=== PATIENT | male | born 1930 | race Caucasian/White ===

== ENCOUNTER 2018-02-13 20:22 | Inpatient (IN) | payer MEDICARE ==
[~2018-02-13] VITALS: Ht 160 cm; Wt 59.2 kg
[2018-02-13 21:23] LABS: BASOPHILS % (AUTO) 0.5 % (0.0-5.0); EOSINOPHILS % (AUTO) 0.3 % (0.0-8.0); HEMATOCRIT 33.4 % (42-54); LYMPHOCYTES % (AUTO) 10.7 % (21.0-51.0); MEAN CORPUSCULAR HEMOGLOBIN 29.7 pg (27.0-33.0); MEAN CORPUSCULAR HGB CONC 34.2 g/dL (32.0-36.0); MEAN CORPUSCULAR VOLUME 86.9 fL (79-99); MONOCYTES % (AUTO) 10.2 % (3.0-13.0); NEUTROPHILS % (AUTO) 78.3 % (40.0-77.0); PLATELET COUNT (AUTO) 205 K/uL (130-400); RED BLOOD CELL COUNT(AUTO) 3.84 MIL/uL (4.50-6.20); RED CELL DISTRIBUTION WIDTH 13.4 % (11.0-15.5); WHITE BLOOD COUNT (AUTO) 9.6 K/uL (4.8-10.8)
[2018-02-13 21:36] LABS: INR 1.13 (0.85-1.15); PARTIAL THROMBOPLASTIN TIME 32.4 SEC (26.3-35.5); PROTHROMBIN TIME 11.6 SEC (9.6-11.6)
[2018-02-13 21:44] LABS: CARBON DIOXIDE 29 mmol/L (21-32); CHLORIDE 99 mmol/L (101-111); CREATININE 0.9 mg/dL (0.5-1.5); GLOMERULAR FILTR. RATE CALC 85 mL/min (>60); GLUCOSE,RANDOM 125 mg/dL (70-105); POTASSIUM 4.5 mmol/L (3.5-5.1); SODIUM SERUM 136 mmol/L (136-145); UREA NITROGEN, BLOOD 17 mg/dL (7-18)
[2018-02-13 22:00] LABS: ALANINE AMINOTRANSFERASE 13 U/L (12-78); ALBUMIN 2.9 g/dL (3.5-5.0); AMYLASE 21 U/L (25-115); ASPARTATE AMINOTRANSFERASE 38 U/L (10-37); BILIRUBIN,TOTAL 0.7 mg/dL (0.2-1.0); CREATINE KINASE MB < 0.5 ng/mL (0.5-3.6); CREATINE KINASE, TOTAL 91 U/L (21-232); LIPASE < 50 U/L (114-286); TOTAL PROTEIN, SERUM 7.2 g/dL (6.0-8.3)
[2018-02-13] MEDS ORDERED: METRONIDAZOLE 500MG/100ML BAG 100 ML ONE (22:43)
[2018-02-13] MEDS ORDERED: OSELTAMIVIR PHOSPHATE 75 MG CAP ONE (23:20)
[2018-02-13] MEDS ORDERED: SODIUM CHLORIDE 0.9% 1000ML 1,000 ML IV SCH (23:59)
[2018-02-14] MEDS ORDERED: GUAIFENESIN-DM 200/20 MG 10 ML PO PRN
[2018-02-14] MEDS ORDERED: LIDOCAINE HCL-MPF 1% 2ML VIAL IVP PRN
[2018-02-14] MEDS ORDERED: POTASSIUM CHLORIDE 10% ELIXIR 20 MEQ/15 ML UDCUP PO PRN
[2018-02-14] MEDS ORDERED: HYDRALAZINE HCL 20 MG/ML VIAL IV PRN
[2018-02-14] MEDS ORDERED: ONDANSETRON HCL MDV 20ML 2 MG/ML VIAL IV PRN
[2018-02-14] MEDS ORDERED: MORPHINE SULFATE 2 MG/ML 1ML SYG IV PRN
[2018-02-14] MEDS ORDERED: POTASSIUM CHLORIDE 20MEQ/100ML 100 ML IV PRN
[2018-02-14] MEDS ORDERED: ACETAMINOPHEN 325 MG TAB PO PRN ×2
[2018-02-14] MEDS ORDERED: SODIUM CHLORIDE 0.9% 1000ML 1,000 ML IV ONE (00:12)
[2018-02-14 00:23] LABS: APPEARANCE,URINE Clear (CLEAR); BILIRUBIN,URINE Negative (NEGATIVE); COLOR,URINE Dark Yellow (YELLOW); GLUCOSE, URINE (UA) Negative (NEGATIVE); KETONES,URINE Negative (NEGATIVE); LEUKOCYTE ESTERASE ,URINE Negative (NEGATIVE); NITRATE,URINE Negative (NEGATIVE); OCCULT BLOOD,URINE Trace (NEGATIVE); PROTEIN,URINE POS 1+ (NEGATIVE)
[2018-02-14] MEDS ORDERED: IPRATROPIUM/ALBUTEROL SULFATE 3 ML SOLUTION IH ONE ×3 (00:24→11:12)
[2018-02-14] MEDS: IPRATROPIUM/ALBUTEROL SULFATE 3 ML SOLUTION IH SCH ×4 (00:25→19:11)
[2018-02-14 00:44] LABS: BACTERIA,URINE Few /HPF (None Seen); RBC,URINE 0-1 /HPF (0-1)
[2018-02-14 00:45] LABS: FINE GRANULAR CASTS,URINE 0-2 /LPF (None Seen); MUCUS,URINE Few LPF (None Seen)
[2018-02-14 06:51] LABS: HEMATOCRIT 33.5 % (42-54); MEAN CORPUSCULAR HGB CONC 34.2 g/dL (32.0-36.0); MEAN CORPUSCULAR VOLUME 87.8 fL (79-99); PLATELET COUNT (AUTO) 226 K/uL (130-400); RED BLOOD CELL COUNT(AUTO) 3.82 MIL/uL (4.50-6.20); RED CELL DISTRIBUTION WIDTH 13.8 % (11.0-15.5); WHITE BLOOD COUNT (AUTO) 11.1 K/uL (4.8-10.8)
[2018-02-14 07:07] LABS: CREATININE 1.2 mg/dL (0.5-1.5); POTASSIUM 3.5 mmol/L (3.5-5.1)
[2018-02-14] MEDS ORDERED: METRONIDAZOLE 500MG/100ML BAG 100 ML ONE ×2 (07:44→15:21)
[2018-02-14] MEDS ORDERED: PANTOPRAZOLE 40 MG/VIAL IVP SCH (09:00)
[2018-02-14] MEDS: ENOXAPARIN SODIUM 40 MG/0.4 ML SYRINGE SQ SCH (09:00)
[2018-02-14] MEDS ORDERED: ENOXAPARIN SODIUM 40 MG/0.4 ML SYRINGE SQ ONE (10:15)
[2018-02-14] MEDS ORDERED: OSELTAMIVIR PHOSPHATE 75 MG CAP ONE ×2 (10:16→21:42)
[2018-02-14] MEDS ORDERED: FAMOTIDINE/PF 20 MG/2 ML VIAL IV ONE ×2 (10:16→21:43)
[2018-02-14] MEDS: OSELTAMIVIR PHOSPHATE 75 MG CAP PO SCH (21:00)
[2018-02-14] MEDS ORDERED: METOPROLOL TARTRATE 1 MG/ML 5ML VIAL IV SCH (21:45)
[2018-02-14 22:35] VITALS: BP 120/68
[2018-02-14] MEDS: IPRATROPIUM 0.5 MG/2.5 ML INH IH SCH (23:43)
[2018-02-15] MEDS ORDERED: SODIUM CHLORIDE 0.9% 250 ML IV ONE (00:05)
[2018-02-15] MEDS: METRONIDAZOLE 500MG/100ML BAG 100 ML IV SCH ×4 (00:12→18:07)
[2018-02-15] MEDS: LEVOFLOXACIN 500 MG/D5W 100 ML 100 ML IV SCH ×2 (00:12→00:14)
[2018-02-15] MEDS ORDERED: LACTULOSE 20 GM/30 ML UDCUP PO PRN (00:45)
[2018-02-15 04:00] VITALS: BP 132/76
[2018-02-15] MEDS: IPRATROPIUM 0.5 MG/2.5 ML INH IH SCH ×4 (05:52→23:52)
[2018-02-15 06:03] LABS: HEMATOCRIT 29.6 % (42-54); MEAN CORPUSCULAR HEMOGLOBIN 29.4 pg (27.0-33.0); MEAN CORPUSCULAR HGB CONC 34.2 g/dL (32.0-36.0); PLATELET COUNT (AUTO) 209 K/uL (130-400); RED BLOOD CELL COUNT(AUTO) 3.44 MIL/uL (4.50-6.20); RED CELL DISTRIBUTION WIDTH 13.8 % (11.0-15.5); WHITE BLOOD COUNT (AUTO) 8.8 K/uL (4.8-10.8)
[2018-02-15 06:23] LABS: B-TYPE NATRIURETIC PEPTIDE 392 pg/mL (0-100)
[2018-02-15 06:25] LABS: CREATININE 0.9 mg/dL (0.5-1.5); POTASSIUM 3.1 mmol/L (3.5-5.1)
[2018-02-15 08:00] VITALS: BP 116/69
[2018-02-15] MEDS ORDERED: ASPI-555 PO (09:20)
[2018-02-15] MEDS ORDERED: PREG100C PO (09:20)
[2018-02-15] MEDS ORDERED: OMEP40CA37 PO (09:20)
[2018-02-15] MEDS ORDERED: POLY17PO3 PO (09:20)
[2018-02-15] MEDS ORDERED: MORP30PC9 PO (09:20)
[2018-02-15] MEDS ORDERED: METO50TA18 PO (09:20)
[2018-02-15] MEDS: PANTOPRAZOLE SODIUM 40 MG TABLET.DR PO SCH (09:28)
[2018-02-15] MEDS: ENOXAPARIN SODIUM 40 MG/0.4 ML SYRINGE SQ SCH (09:29)
[2018-02-15] MEDS: OSELTAMIVIR PHOSPHATE 75 MG CAP PO SCH ×2 (09:29→20:34)
[2018-02-15] MEDS ORDERED: PHARMACY COMMUNICATION MISC SCH (09:30)
[2018-02-15] MEDS ORDERED: MORPHINE SULFATE 15 MG TABLET.SA PO SCH (09:45)
[2018-02-15 11:00] VITALS: BP 106/67
[2018-02-15] MEDS ORDERED: PREGABALIN 100 MG CAPSULE PO SCH (14:00)
[2018-02-15 16:00] VITALS: BP 124/64
[2018-02-15] MEDS: MORPHINE SULFATE 15 MG TABLET.SA PO SCH ×2 (18:09→19:28)
[2018-02-15] MEDS: PREGABALIN 100 MG CAPSULE PO SCH ×2 (18:09→19:28)
[2018-02-15 20:00] VITALS: BP 118/70
[2018-02-15] MEDS: POLYETHYLENE GLYCOL 3350 17 GM POWD.PACK PO SCH (20:33)
[2018-02-16] VITALS: BP 132/80
[2018-02-16] MEDS: METRONIDAZOLE 500MG/100ML BAG 100 ML IV SCH ×2 (00:19→08:23)
[2018-02-16] MEDS: LEVOFLOXACIN 500 MG/D5W 100 ML 100 ML IV SCH (00:19)
[2018-02-16 04:00] VITALS: BP 110/70
[2018-02-16 04:56] LABS: HEMATOCRIT 26.9 % (42-54); MEAN CORPUSCULAR HEMOGLOBIN 31.1 pg (27.0-33.0); MEAN CORPUSCULAR HGB CONC 36.3 g/dL (32.0-36.0); MEAN CORPUSCULAR VOLUME 85.5 fL (79-99); PLATELET COUNT (AUTO) 221 K/uL (130-400); RED BLOOD CELL COUNT(AUTO) 3.15 MIL/uL (4.50-6.20); RED CELL DISTRIBUTION WIDTH 13.6 % (11.0-15.5); WHITE BLOOD COUNT (AUTO) 7.1 K/uL (4.8-10.8)
[2018-02-16 05:14] LABS: CREATININE 0.9 mg/dL (0.5-1.5); POTASSIUM 3.3 mmol/L (3.5-5.1)
[2018-02-16] MEDS: POTASSIUM CHLORIDE 20 MEQ ERTAB PO PRN ×2 (06:21→12:43)
[2018-02-16] MEDS: IPRATROPIUM 0.5 MG/2.5 ML INH IH SCH ×2 (06:47→11:15)
[2018-02-16] MEDS ORDERED: MORPHINE SULFATE 15 MG TABLET.SA PO SCH (07:04)
[2018-02-16] MEDS ORDERED: PREGABALIN 100 MG CAPSULE PO SCH (07:04)
[2018-02-16 08:00] VITALS: BP 86/52
[2018-02-16] MEDS: OSELTAMIVIR PHOSPHATE 75 MG CAP PO SCH (08:24)
[2018-02-16] MEDS: PANTOPRAZOLE SODIUM 40 MG TABLET.DR PO SCH (08:24)
[2018-02-16] MEDS: ENOXAPARIN SODIUM 40 MG/0.4 ML SYRINGE SQ SCH (08:25)
[2018-02-16] MEDS ORDERED: ASPIRIN 81 MG EC TAB PO SCH (09:00)
[2018-02-16] MEDS ORDERED: METOPROLOL TARTRATE 50 MG TAB PO SCH (09:00)
[2018-02-16] MEDS ORDERED: NON-FORMULARY MEDICATION 1 EACH (Omeprazole 40 MG) PO SCH (09:00)
[2018-02-16] MEDS: POLYETHYLENE GLYCOL 3350 17 GM POWD.PACK PO SCH (09:00)
[2018-02-16] MEDS ORDERED: OSEL75 PO (10:30)
[2018-02-16] MEDS ORDERED: LEVO500T2 PO (10:30)
[2018-02-16 11:49] VITALS: BP 77/47
[2018-02-16 11:58] VITALS: BP 115/57
== END 2018-02-16 14:15 | disposition home or self-care (01) | DRG 391 ==
LOC: EDH 20:22 → EDHIP 23:00 → 3CH 02-14 22:19
PROVIDERS: ADMIT Family Medicine; ATTEND Family Medicine
DX: K57.92 Diverticulitis of intestine, part unspecified, without perforation or abscess without bleeding (principal); J18.9 Pneumonia, unspecified organism; J84.10 Pulmonary fibrosis, unspecified; E86.0 Dehydration; J43.9 Emphysema, unspecified; I35.0 Nonrheumatic aortic (valve) stenosis; Z95.1 Presence of aortocoronary bypass graft; J98.11 Atelectasis; J10.1 Influenza due to other identified influenza virus with other respiratory manifestations; N20.0 Calculus of kidney; I10 Essential (primary) hypertension; I25.10 Atherosclerotic heart disease of native coronary artery without angina pectoris; Z88.1 Allergy status to other antibiotic agents; Z82.49 Family history of ischemic heart disease and other diseases of the circulatory system
CPT/HCPCS: 36415; 71045; 71046; 71250; 74176; 80048; 80053; 81001; 82150; 82550; 82553; 83690; 83880; 84484; 85025; 85027; 85610; 85730; 87040; 87804; 93005; 93306; 94640; 94664; C9113; J1650; J1956; J3490; J7030

== ENCOUNTER 2018-03-03 19:15 | Inpatient (IN) | payer MEDICARE ==
[~2018-03-03] VITALS: Ht 160 cm; Wt 56.7 kg
[~2018-03-03 19:15] MED LIST: ASPI-555 PO; LEVO500T2 PO; METO50TA18 PO; MORP30PC9 PO; OMEP40CA37 PO; OSEL75 PO; POLY17PO3 PO; PREG100C PO
[2018-03-03 19:46] LABS: BASOPHILS % (AUTO) 0.4 % (0.0-5.0); EOSINOPHILS % (AUTO) 1.3 % (0.0-8.0); HEMATOCRIT 34.1 % (42-54); LYMPHOCYTES % (AUTO) 19.5 % (21.0-51.0); MEAN CORPUSCULAR HEMOGLOBIN 29.8 pg (27.0-33.0); MEAN CORPUSCULAR HGB CONC 34.6 g/dL (32.0-36.0); MEAN CORPUSCULAR VOLUME 86.1 fL (79-99); MONOCYTES % (AUTO) 3.7 % (3.0-13.0); NEUTROPHILS % (AUTO) 75.1 % (40.0-77.0); PLATELET COUNT (AUTO) 375 K/uL (130-400); RED BLOOD CELL COUNT(AUTO) 3.96 MIL/uL (4.50-6.20); RED CELL DISTRIBUTION WIDTH 14.5 % (11.0-15.5)
[2018-03-03] MEDS ORDERED: ZOSYN 3.375GM+NS 50ML 50 ML IV ONE (19:54)
[2018-03-03] MEDS ORDERED: SODIUM CHLORIDE 0.9% 1000ML 1,000 ML IV ONE ×2 (19:54→23:46)
[2018-03-03] MEDS ORDERED: METOPROLOL TARTRATE 1 MG/ML 5ML VIAL IV ONE (19:54)
[2018-03-03] MEDS ORDERED: ONDANSETRON HCL MDV 20ML 2 MG/ML VIAL ONE (19:54)
[2018-03-03 19:57] LABS: INR 1.01 (0.85-1.15); PARTIAL THROMBOPLASTIN TIME 27.3 SEC (26.3-35.5); PROTHROMBIN TIME 10.6 SEC (9.6-11.6)
[2018-03-03] MEDS: METRONIDAZOLE 500MG/100ML BAG 100 ML IVPB SCH (20:00)
[2018-03-03 20:03] LABS: CREATININE 1.3 mg/dL (0.5-1.5); POTASSIUM 4.4 mmol/L (3.5-5.1)
[2018-03-03 20:08] LABS: ALBUMIN 3.5 g/dL (3.5-5.0); BILIRUBIN,TOTAL 0.2 mg/dL (0.2-1.0); TOTAL PROTEIN, SERUM 8.2 g/dL (6.0-8.3)
[2018-03-03 20:09] LABS: B-TYPE NATRIURETIC PEPTIDE 224 pg/mL (0-100)
[2018-03-03] MEDS ORDERED: IOPAMIDOL-370 75 ML VIAL IV ONE (20:14)
[2018-03-03 20:21] LABS: CREATINE KINASE MB 0.6 ng/mL (0.5-3.6); CREATINE KINASE, TOTAL 50 U/L (21-232); MYOGLOBIN 75 ng/mL (10-92); TROPONIN I < 0.04 ng/mL (0.00-0.06)
[2018-03-03] MEDS ORDERED: MORPHINE SULFATE 4 MG/1ML SYG ONE (20:35)
[2018-03-03] MEDS ORDERED: ACETAMINOPHEN 325 MG TAB PO PRN ×2 (22:00)
[2018-03-03] MEDS ORDERED: LIDOCAINE HCL-MPF 1% 2ML VIAL IJ PRN (22:00)
[2018-03-03] MEDS ORDERED: POTASSIUM CHLORIDE 20 MEQ ERTAB PO PRN (22:00)
[2018-03-03] MEDS ORDERED: POTASSIUM CHLORIDE 20MEQ/100ML 100 ML IV PRN (22:00)
[2018-03-03] MEDS ORDERED: CLONIDINE HCL 0.1 MG TABLET PO PRN (22:00)
[2018-03-03] MEDS ORDERED: NITROGLYCERIN 0.4 MG SL TAB SL PRN (22:00)
[2018-03-03] MEDS: FAMOTIDINE/PF 20 MG/2 ML VIAL IV SCH (22:00)
[2018-03-03] MEDS ORDERED: MORPHINE SULFATE 4 MG/1ML SYG IVP PRN (22:00)
[2018-03-03] MEDS ORDERED: ONDANSETRON HCL MDV 20ML 2 MG/ML VIAL IVP PRN (22:00)
[2018-03-03 23:28] LABS: APPEARANCE,URINE Clear (CLEAR); BILIRUBIN,URINE Negative (NEGATIVE); COLOR,URINE Yellow (YELLOW); GLUCOSE, URINE (UA) Negative (NEGATIVE); KETONES,URINE Negative (NEGATIVE); LEUKOCYTE ESTERASE ,URINE Negative (NEGATIVE); NITRATE,URINE Negative (NEGATIVE); OCCULT BLOOD,URINE Trace (NEGATIVE); PROTEIN,URINE POS 1+ (NEGATIVE)
[2018-03-03 23:34] LABS: BACTERIA,URINE None Seen /HPF (None Seen); RBC,URINE 0-1 /HPF (0-1); SQUAMOUS EPITHELIAL CELL,UR Rare /HPF (0-2); WBC,URINE None Seen /HPF (0-1)
[2018-03-03] MEDS ORDERED: METRONIDAZOLE 500MG/100ML BAG 100 ML ONE (23:47)
[2018-03-04] VITALS (7 sets, daily range): BP systolic 96–119; BP diastolic 52–65
[2018-03-04] MEDS ORDERED: HYDRALAZINE HCL 20 MG/ML VIAL IV PRN (00:45)
[2018-03-04] MEDS ORDERED: IPRATROPIUM/ALBUTEROL SULFATE 3 ML SOLUTION IH PRN (01:00)
[2018-03-04] MEDS: SODIUM CHLORIDE 0.9% 1000ML 1,000 ML IV SCH ×2 (01:00→16:17)
[2018-03-04 03:41] LABS: BASOPHILS % (AUTO) 0.3 % (0.0-5.0); MEAN CORPUSCULAR HEMOGLOBIN 28.9 pg (27.0-33.0); MEAN CORPUSCULAR HGB CONC 34.1 g/dL (32.0-36.0); MEAN CORPUSCULAR VOLUME 84.6 fL (79-99); MONOCYTES % (AUTO) 5.7 % (3.0-13.0); PLATELET COUNT (AUTO) 255 K/uL (130-400); RED BLOOD CELL COUNT(AUTO) 3.55 MIL/uL (4.50-6.20); RED CELL DISTRIBUTION WIDTH 14.2 % (11.0-15.5); WHITE BLOOD COUNT (AUTO) 14.7 K/uL (4.8-10.8)
[2018-03-04 03:49] LABS: CREATININE 1.2 mg/dL (0.5-1.5); POTASSIUM 4.3 mmol/L (3.5-5.1)
[2018-03-04] MEDS: ZOSYN 3.375GM+NS 50ML 50 ML IV SCH ×3 (04:22→22:29)
[2018-03-04] MEDS: METRONIDAZOLE 500MG/100ML BAG 100 ML IVPB SCH ×3 (04:22→20:44)
[2018-03-04] MEDS: FAMOTIDINE/PF 20 MG/2 ML VIAL IV SCH (09:17)
[2018-03-04] MEDS ORDERED: METO100T14 PO (10:02)
[2018-03-04] MEDS ORDERED: MORP30CP13 PO (10:02)
[2018-03-04] MEDS ORDERED: ACETAMINOPHEN-CODEINE 300/30MG TAB PO PRN ×2 (11:15)
[2018-03-04] MEDS ORDERED: MORPHINE SULFATE 4 MG/1ML SYG IVP PRN (11:15)
[2018-03-04] MEDS ORDERED: METOPROLOL TARTRATE 25 MG TAB PO SCH (21:00)
[2018-03-05 03:47] LABS: BASOPHILS % (AUTO) 0.4 % (0.0-5.0); EOSINOPHILS % (AUTO) 0.2 % (0.0-8.0); HEMATOCRIT 29.4 % (42-54); LYMPHOCYTES % (AUTO) 9.5 % (21.0-51.0); MEAN CORPUSCULAR VOLUME 85.9 fL (79-99); MONOCYTES % (AUTO) 4.8 % (3.0-13.0); NEUTROPHILS % (AUTO) 85.1 % (40.0-77.0); PLATELET COUNT (AUTO) 216 K/uL (130-400); RED BLOOD CELL COUNT(AUTO) 3.42 MIL/uL (4.50-6.20); RED CELL DISTRIBUTION WIDTH 14.3 % (11.0-15.5); WHITE BLOOD COUNT (AUTO) 11.2 K/uL (4.8-10.8)
[2018-03-05 03:53] VITALS: BP 127/82
[2018-03-05 03:54] LABS: POTASSIUM 3.6 mmol/L (3.5-5.1)
[2018-03-05] MEDS: METRONIDAZOLE 500MG/100ML BAG 100 ML IVPB SCH ×3 (04:19→21:10)
[2018-03-05] MEDS: ZOSYN 3.375GM+NS 50ML 50 ML IV SCH (06:09)
[2018-03-05 08:00] VITALS: BP 139/82
[2018-03-05] MEDS ORDERED: VANCOMYCIN PROTOCOL PER PHARMACY IV PRN (10:15)
[2018-03-05] MEDS: FAMOTIDINE/PF 20 MG/2 ML VIAL IV SCH (10:42)
[2018-03-05] MEDS: MORPHINE SULFATE IR 15 MG TAB 15 MG TABLET PO SCH ×2 (11:26→21:19)
[2018-03-05] MEDS: SODIUM CHLORIDE 0.9% 1000ML 1,000 ML IV SCH (11:27)
[2018-03-05 11:36] VITALS: BP 154/91
[2018-03-05] MEDS ORDERED: ZOSYN 3.375GM+NS 50ML 50 ML IV ONE (14:07)
[2018-03-05] MEDS: PREGABALIN 100 MG CAPSULE PO SCH ×2 (14:28→21:09)
[2018-03-05] MEDS: VANCOMYCIN 1GM+NS 250ML 250 ML IV SCH (14:29)
[2018-03-05 15:51] VITALS: BP 124/68
[2018-03-05 19:57] VITALS: BP 136/69
[2018-03-05] MEDS: METOPROLOL TARTRATE 25 MG TAB PO SCH (21:09)
[2018-03-05] MEDS: POLYETHYLENE GLYCOL 3350 17 GM POWD.PACK PO SCH (21:09)
[2018-03-05 23:52] VITALS: BP 110/60
[2018-03-06 03:56] VITALS: BP 110/63
[2018-03-06] MEDS: METRONIDAZOLE 500MG/100ML BAG 100 ML IVPB SCH ×3 (04:36→20:10)
[2018-03-06 05:47] LABS: BASOPHILS % (AUTO) 0.8 % (0.0-5.0); EOSINOPHILS % (AUTO) 4.7 % (0.0-8.0); HEMATOCRIT 29.5 % (42-54); LYMPHOCYTES % (AUTO) 14.7 % (21.0-51.0); MEAN CORPUSCULAR HEMOGLOBIN 28.8 pg (27.0-33.0); MEAN CORPUSCULAR HGB CONC 33.9 g/dL (32.0-36.0); MEAN CORPUSCULAR VOLUME 85.1 fL (79-99); MONOCYTES % (AUTO) 5.7 % (3.0-13.0); NEUTROPHILS % (AUTO) 74.1 % (40.0-77.0); PLATELET COUNT (AUTO) 212 K/uL (130-400); RED BLOOD CELL COUNT(AUTO) 3.47 MIL/uL (4.50-6.20); RED CELL DISTRIBUTION WIDTH 14.5 % (11.0-15.5); WHITE BLOOD COUNT (AUTO) 7.3 K/uL (4.8-10.8)
[2018-03-06 05:57] LABS: CREATININE 0.9 mg/dL (0.5-1.5); POTASSIUM 3.2 mmol/L (3.5-5.1)
[2018-03-06 08:00] VITALS: BP 141/81
[2018-03-06] MEDS: SODIUM CHLORIDE 0.9% 1000ML 1,000 ML IV SCH (08:17)
[2018-03-06] MEDS: FAMOTIDINE/PF 20 MG/2 ML VIAL IV SCH (10:39)
[2018-03-06] MEDS: MORPHINE SULFATE IR 15 MG TAB 15 MG TABLET PO SCH ×2 (10:40→20:11)
[2018-03-06] MEDS: PREGABALIN 100 MG CAPSULE PO SCH ×3 (10:41→20:11)
[2018-03-06] MEDS: METOPROLOL TARTRATE 25 MG TAB PO SCH ×2 (10:41→20:10)
[2018-03-06] MEDS: POLYETHYLENE GLYCOL 3350 17 GM POWD.PACK PO SCH ×2 (10:41→20:10)
[2018-03-06] MEDS: ASPIRIN 81 MG EC TAB PO SCH (10:41)
[2018-03-06] MEDS: ENOXAPARIN SODIUM 30 MG/0.3 ML SQ SCH (10:42)
[2018-03-06 12:00] VITALS: BP 137/76
[2018-03-06] MEDS: VANCOMYCIN 1GM+NS 250ML 250 ML IV SCH (12:50)
[2018-03-06] MEDS: POTASSIUM CHLORIDE 10% ELIXIR 20 MEQ/15 ML UDCUP PO PRN ×2 (12:51→14:51)
[2018-03-06 15:48] VITALS: BP 123/71
[2018-03-06 19:45] VITALS: BP 138/81
[2018-03-06 23:28] VITALS: BP 131/72
[2018-03-07 03:50] VITALS: BP 135/69
[2018-03-07] MEDS: METRONIDAZOLE 500MG/100ML BAG 100 ML IVPB SCH ×2 (03:58→13:19)
[2018-03-07 05:41] LABS: CREATININE 0.8 mg/dL (0.5-1.5); POTASSIUM 3.9 mmol/L (3.5-5.1)
[2018-03-07 08:02] VITALS: BP 143/74
[2018-03-07] MEDS: POLYETHYLENE GLYCOL 3350 17 GM POWD.PACK PO SCH (10:14)
[2018-03-07] MEDS: METOPROLOL TARTRATE 25 MG TAB PO SCH (10:14)
[2018-03-07] MEDS: FAMOTIDINE/PF 20 MG/2 ML VIAL IV SCH (10:14)
[2018-03-07] MEDS: MORPHINE SULFATE IR 15 MG TAB 15 MG TABLET PO SCH (10:14)
[2018-03-07] MEDS: ASPIRIN 81 MG EC TAB PO SCH (10:14)
[2018-03-07] MEDS: PREGABALIN 100 MG CAPSULE PO SCH ×2 (10:15→15:04)
[2018-03-07] MEDS: ENOXAPARIN SODIUM 30 MG/0.3 ML SQ SCH (10:15)
[2018-03-07 11:49] VITALS: BP 157/91
[2018-03-07] MEDS: VANCOMYCIN 1GM+NS 250ML 250 ML IV SCH (13:19)
[2018-03-07 16:30] VITALS: BP 131/72
== END 2018-03-07 17:25 | disposition home or self-care (01) | DRG 872 ==
LOC: EDH 19:15 → OBSVTOIN 21:13 → EDHIP 21:13 → 3BH 23:50
PROVIDERS: ADMIT Family Medicine; ATTEND Family Medicine
DX: A41.9 Sepsis, unspecified organism (principal); B02.9 Zoster without complications; D64.9 Anemia, unspecified; Z95.1 Presence of aortocoronary bypass graft; B96.89 Other specified bacterial agents as the cause of diseases classified elsewhere; I10 Essential (primary) hypertension; I25.10 Atherosclerotic heart disease of native coronary artery without angina pectoris; K52.9 Noninfective gastroenteritis and colitis, unspecified; G89.29 Other chronic pain; K57.30 Diverticulosis of large intestine without perforation or abscess without bleeding; K59.09 Other constipation; Z96.653 Presence of artificial knee joint, bilateral; Z88.2 Allergy status to sulfonamides; Z86.19 Personal history of other infectious and parasitic diseases; Z90.49 Acquired absence of other specified parts of digestive tract
CPT/HCPCS: 36415; 71045; 74177; 80048; 80053; 81001; 82550; 82553; 83605; 83874; 83880; 84484; 85025; 85610; 85730; 87040; 87088; 87186; 87507; 93005; 94664; 97039; J1650; J2270; J2543; J3370; J3490; J7030; Q9967

== ENCOUNTER → 2018-09-14 | Outpatient (CLI) | payer MEDICARE ==
[~2018-09-14] MED LIST changes: -LEVO500T2 PO; -METO50TA18 PO; +MORP30CP13 PO; -MORP30PC9 PO; -OSEL75 PO; -POLY17PO3 PO
== END | disposition home or self-care (01) ==
LOC: SHCH 08:49
PROVIDERS: ATTEND Internal Medicine Cardiovascular Disease
DX: I65.23 Occlusion and stenosis of bilateral carotid arteries (principal)
CPT/HCPCS: 93880

== ENCOUNTER 2019-07-19 20:02 | Inpatient (IN) | payer MEDICARE | END 2019-07-22 14:10 | disposition home or self-care (01) | LOC: EDH 20:02 → EDHIP 23:35 → 3CH 23:55 | DX: J18.9 Pneumonia, unspecified organism (principal); J44.0 Chronic obstructive pulmonary disease with (acute) lower respiratory infection ==

== ENCOUNTER 2020-01-13 11:13 | Observation (INO) | payer MEDICARE, OTHER ==
[~2020-01-13] VITALS: Ht 170.2 cm; Wt 61.3 kg
[~2020-01-13 11:13] MED LIST changes: -ASPI-555 PO; +ASPI-556 PO; +CEFD300C3 PO; +METO37.5 PO; +OMEP40CA13 PO; -OMEP40CA37 PO
[2020-01-13 11:40] LABS: BASOPHILS % (AUTO) 0.2 % (0.0-5.0); HEMATOCRIT 36.8 % (42-54); LYMPHOCYTES % (AUTO) 5.9 % (21.0-51.0); MEAN CORPUSCULAR HEMOGLOBIN 28.1 pg (27.0-33.0); MEAN CORPUSCULAR HGB CONC 32.3 g/dL (32.0-36.0); MEAN CORPUSCULAR VOLUME 86.8 fL (79-99); MONOCYTES % (AUTO) 6.8 % (3.0-13.0); NEUTROPHILS % (AUTO) 86.6 % (40.0-77.0); PLATELET COUNT (AUTO) 201 K/uL (130-400); RED BLOOD CELL COUNT(AUTO) 4.24 MIL/uL (4.50-6.20); RED CELL DISTRIBUTION WIDTH 15.1 % (11.0-15.5)
[2020-01-13 11:46] LABS: CARBON DIOXIDE 31 mmol/L (21-32); CHLORIDE 98 mmol/L (101-111); CREATININE 1.3 mg/dL (0.5-1.5); GLOMERULAR FILTR. RATE CALC 55 mL/min (>60); GLUCOSE,RANDOM 132 mg/dL (70-105); POTASSIUM 4.4 mmol/L (3.5-5.1); SODIUM SERUM 133 mmol/L (136-145); UREA NITROGEN, BLOOD 17 mg/dL (7-18)
[2020-01-13 11:54] LABS: INR 1.12 (0.85-1.15); PARTIAL THROMBOPLASTIN TIME 34.1 SEC (26.3-35.5)
[2020-01-13 11:57] LABS: ALANINE AMINOTRANSFERASE 9 U/L (12-78); ALBUMIN 3.6 g/dL (3.5-5.0); ASPARTATE AMINOTRANSFERASE 23 U/L (10-37); BILIRUBIN,TOTAL 0.9 mg/dL (0.2-1.0); CREATINE KINASE, TOTAL 88 U/L (21-232); MYOGLOBIN 206 ng/mL (10-92); TOTAL PROTEIN, SERUM 7.7 g/dL (6.0-8.3); TROPONIN I < 0.04 ng/mL (0.00-0.06)
[2020-01-13] MEDS ORDERED: SODIUM CHLORIDE 0.9% 1000ML 2,000 ML IV ONE (12:23)
[2020-01-13 14:11] LABS: APPEARANCE,URINE Clear (CLEAR); BILIRUBIN,URINE Negative (NEGATIVE); COLOR,URINE Yellow (YELLOW); GLUCOSE, URINE (UA) Negative (NEGATIVE); KETONES,URINE Trace mg/dL (NEGATIVE); LEUKOCYTE ESTERASE ,URINE Negative (NEGATIVE); NITRATE,URINE Negative (NEGATIVE); OCCULT BLOOD,URINE Small (NEGATIVE); PROTEIN,URINE Negative (NEGATIVE)
[2020-01-13 14:24] LABS: BACTERIA,URINE None Seen /HPF (None Seen); WBC,URINE None Seen /HPF (0-1)
[2020-01-13] MEDS: SODIUM CHLORIDE 0.9% 1000ML 1,000 ML IV SCH (16:45)
[2020-01-13] MEDS ORDERED: ZOSYN 3.375GM+NS 50ML 50 ML IV ONE (16:46)
[2020-01-13] MEDS ORDERED: SODIUM CHLORIDE 0.9% 1000ML 1,000 ML IV ONE (16:46)
[2020-01-13] MEDS: ZOSYN 3.375GM+NS 50ML 50 ML IV SCH (17:00)
[2020-01-13 18:48] VITALS: BP 145/79
--- NOTE | 2020-01-13 19:45 | NUR ---
Admission Assessment Received pt with no family around, reported by Rhonda MOULTON admitted from ED at around 1830, NS a 60cc/hr infusing well. Routine admission assessment done, noted pt only oriented to his name, re-oriented to time, place, reminded to stay & bed & call for assistance before getting off his bed, call light within reach & demonstrated how to call me. Admission data base information obtain from previous admission record as pt (+) AMS but able to answer simple open ended questions. PT currently denies discomfort, bed alarm activated. Home medication pending to be obtain from family with vaccination records.
[2020-01-14] VITALS: BP 136/77
[2020-01-14] MEDS: ZOSYN 3.375GM+NS 50ML 50 ML IV SCH ×2 (01:01→08:25)
[2020-01-14 03:53] VITALS: BP 134/74
[2020-01-14 05:13] LABS: BASOPHILS % (AUTO) 0.2 % (0.0-5.0); EOSINOPHILS % (AUTO) 0.2 % (0.0-8.0); HEMATOCRIT 31.3 % (42-54); LYMPHOCYTES % (AUTO) 8.3 % (21.0-51.0); MEAN CORPUSCULAR HEMOGLOBIN 28.5 pg (27.0-33.0); MEAN CORPUSCULAR HGB CONC 32.9 g/dL (32.0-36.0); MEAN CORPUSCULAR VOLUME 86.5 fL (79-99); MONOCYTES % (AUTO) 8.1 % (3.0-13.0); NEUTROPHILS % (AUTO) 82.8 % (40.0-77.0); PLATELET COUNT (AUTO) 157 K/uL (130-400); RED BLOOD CELL COUNT(AUTO) 3.62 MIL/uL (4.50-6.20); RED CELL DISTRIBUTION WIDTH 15.1 % (11.0-15.5); WHITE BLOOD COUNT (AUTO) 8.4 K/uL (4.8-10.8)
[2020-01-14 05:26] LABS: ALBUMIN 2.8 g/dL (3.5-5.0); CREATININE 1.1 mg/dL (0.5-1.5); POTASSIUM 3.6 mmol/L (3.5-5.1); TOTAL PROTEIN, SERUM 6.5 g/dL (6.0-8.3)
[2020-01-14 08:06] VITALS: BP 119/82
[2020-01-14] MEDS: SODIUM CHLORIDE 0.9% 1000ML 1,000 ML IV SCH (08:25)
[2020-01-14] MEDS ORDERED: METO100T14 PO (10:10)
[2020-01-14] MEDS ORDERED: PREG100C PO (10:10)
[2020-01-14] MEDS ORDERED: ESOM20CA60 PO (10:10)
[2020-01-14] MEDS ORDERED: PREGABALIN 100 MG CAPSULE PO SCH ×2 (10:30→21:00)
[2020-01-14] MEDS ORDERED: ACETAMINOPHEN 325 MG TAB PO PRN (10:30)
[2020-01-14 10:58] VITALS: BP 141/92
[2020-01-14] MEDS ORDERED: MORPHINE SULFATE 15 MG TABLET.SA PO SCH ×2 (11:00→21:00)
[2020-01-14] MEDS ORDERED: MORPHINE SULFATE IR 15 MG TAB 15 MG TABLET PO SCH (11:00)
--- NOTE | 2020-01-14 14:00 | NUR ---
DR. DAILEY AT BEDSIDE. ASSESSED PATIENT. MADE AWARE PATIENT IN A-FLUTTER. HOME MEDS RESUMED. PATIENT AT THIS TIME DENIES CHEST PAIN,OR SHORTNESS OF BREATH.
[2020-01-14 15:43] VITALS: BP 122/75
--- NOTE | 2020-01-14 17:30 | NUR ---
DISCHARGE INSTRUCTIONS GIVEN TO PATIENT AND SPOUSE. MADE OF AWARE OF NEW RX FOR AUGMENTIN GIVEN PRINTED RX. MADE AWARE OF NEED TO FOLLOW UP WITH DR. WALDRON IN 2-3 DAYS. PATIENT AT THIS TIME AWAKE ALERT AND ORIENTED. AMBULATING IN ROOM. DENIES ANY PAIN OR SHORTNESS OF BREATH. IV AND TELE REMOVED. PATIENT WILL BE TAKEN HOME BY SPOUSE
[2020-01-15] MEDS ORDERED: METOPROLOL TARTRATE 50 MG TAB PO SCH (09:00)
[2020-01-15] MEDS ORDERED: PANTOPRAZOLE SODIUM 40 MG TABLET.DR PO SCH (09:00)
[2020-01-15] MEDS ORDERED: ASPIRIN 81 MG EC TAB PO SCH (09:00)
== END 2020-01-14 17:51 | disposition home or self-care (01) ==
LOC: EDH 11:13 → EDHIP 15:42 → 4CH 18:16
PROVIDERS: ADMIT Internal Medicine Critical Care Medicine; ATTEND Internal Medicine Critical Care Medicine
DX: R32 Unspecified urinary incontinence (principal); R29.6 Repeated falls; E86.0 Dehydration; D72.829 Elevated white blood cell count, unspecified; I25.10 Atherosclerotic heart disease of native coronary artery without angina pectoris; J84.9 Interstitial pulmonary disease, unspecified; I48.92 Unspecified atrial flutter; M79.2 Neuralgia and neuritis, unspecified; M19.90 Unspecified osteoarthritis, unspecified site; Z95.1 Presence of aortocoronary bypass graft; Z91.81 History of falling; Z88.2 Allergy status to sulfonamides; W18.39XA Other fall on same level, initial encounter; Y93.89 Activity, other specified; Y92.098 Other place in other non-institutional residence as the place of occurrence of the external cause; Y99.8 Other external cause status
CPT/HCPCS: 36415 ×2; 71045; 80053 ×2; 81001; 82550; 83605; 83874; 83880; 84145; 84484; 85025 ×2; 85610; 85730; 87040 ×2; 87088; 87804 ×2; 93005; 96365; 96366; 97116 ×2; 97161; 99285; G0378 ×10; G8978; G8979; G8980; G8981; G8982; G8983; J2543 ×3; J7030 ×2

== ENCOUNTER → 2020-01-17 | Outpatient (CLI) | payer OTHER ==
[~2020-01-17] MED LIST changes: +ASPI-555 PO; -ASPI-556 PO; -CEFD300C3 PO; +ESOM20CA60 PO; +METO100T14 PO; -METO37.5 PO; -OMEP40CA13 PO
== END | disposition home or self-care (01) ==
LOC: RAH 10:02
PROVIDERS: ATTEND Family Medicine
DX: I65.23 Occlusion and stenosis of bilateral carotid arteries (principal); H54.7 Unspecified visual loss
CPT/HCPCS: 93880